=== PATIENT | male | born 2000 | race Two or more races ===

== ENCOUNTER 2023-03-01 07:05 | Emergency (ER) | payer SELFPAY ==
[2023-03-01 07:11] VITALS: BP 150/92; PULSE 109; RESP 20; TEMP 36.1; O2SAT 97; BMI 16.1
--- NOTE | 2023-03-01 07:43 | ED.URI ---
HPI - URI/Sore Throat General Chief Complaint: Upper Respiratory Symptoms Stated Complaint: Congestion, sore throat Time Seen by Provider: 03/01/23 07:27 History of Present Illness HPI Narrative: Patient is a 22-year-old male presents today with having coughing congestion upper respiratory symptoms this been ongoing for the last 2 days. Positive generalized malaise weakness. Mild headache and runny nose. Tolerating fluids. Previously well has no significant past medical history. Patient never been vaccinated for COVID Related Data Previous Rx's Medication Instructions Recorded nirmatrelvir 300 mg (150 mg See Rx Instructions PO .COMPLEX 03/01/23 x2)-ritonavir 100 mg tablet,dose #30 ea pack (Paxlovid) Allergies Allergy/AdvReac Type Severity Reaction Status Date / Time No Known Allergies Allergy Verified 03/01/23 07:40 Review of Systems Review of Systems: Positive coughing congestion upper respiratory symptoms positive sore throat positive headache Yes all other systems are reviewed and are negative PMFSH Past Medical History Attestation statement: The following information was validated with the patient. Social History Social History Smoked in Last 30 Days: No Use of substances other than those prescribed or required for medical reasons: No Advance Directives: No Physical Exam Vital Signs: Vital Signs: Last Vital Signs Temp 97.0 F 03/01/23 07:11 Pulse 109 H 03/01/23 07:11 Resp 20 03/01/23 07:11 BP 150/92 H 03/01/23 07:11 Pulse Ox 98 03/01/23 08:19 O2 Del Method Room Air 03/01/23 08:19 BMI result Body Mass Index 16.1 Appearance: Alert. Oriented X3. No acute distress. Eyes: Pupils equal, round and reactive to light. ENT: Pharynx normal. Neck: Normal inspection. Neck supple. No lymph nodes noted. No crepitus CVS: Normal heart rate and rhythm. Pulses normal. Normal S1 and S2 Respiratory: No respiratory distress. Breath sounds normal. No Wheezing. No rales Abdomen: Soft and nontender. No rigidity. No distention. good BS x4 Skin: Skin warm and dry. Normal skin color. Normal skin turgor. Extremities: No lower extremity edema. Neurovascular intact to all extremities. No Lacerations. No Rash Neuro: Oriented X 3. No motor deficit. No sensory deficit. Moving all extermities. No slurred speech Medical Decision Making Medical Decision Making MDM Narrative: COVID test came back positive. Symptoms x2 days. Patient's O2 sats 97% on room air. Lungs are clear no respiratory distress. [place] patient does not need hospitalization will need symptom support. Offered Paxil open for COVID as patient is not vaccinated currently on no medications. In stable condition Differential Diagnosis Differential Diagnoses: The differential diagnosis associated with the presentation includes COVID flu RSV viral illness strep throat Admission/Observation Consideration of admission/observation: Escalation of care including admission/observation considered No need for admission as patient's O2 sats normal well-appearing Lab Data [facility] Lab Attestation statement: I reviewed the patient's lab results. Labs: Lab Results 03/01/23 Range/Units 08:00 Influenza Type A (PCR) NEGATIVE (Negative) Influenza Type B (PCR) NEGATIVE (Negative) RSV RNA Qual (PCR) NEGATIVE (Negative) SARS-CoV-2 RNA (RT-PCR) POSITIVE A (Negative) S. pyogenes GrpA LUIS M Negative (Negative) Prescription Management I considered prescription management with: Antibiotic No need for antibiotics will start patient on Paxil over the Discharge Plan Discharge Clinical Impression: COVID-19 Patient Disposition: Home, Self-Care Instructions: COVID-19 (Coronavirus Disease 2019) (ED) Prescriptions: New Paxlovid 300 mg (150 mg x 2)-100 mg tablets,dose pack See Rx Instructions .ROUTE .COMPLEX Qty: 30 0RF Rx Instructions: take TWO 150 mg tablets of nirmatrelvir with ONE 100 mg tablet of ritonavir twice daily for 5 days Referrals: Physician,Sanket J [Primary Care Provider] - 03/03/23 Stand Alone Forms: Work/School Release
--- NOTE | 2023-03-01 08:17 | PC.NURSE ---
this rn assumed care of pt. pt a&ox4, respirations even and unlabored. pt reporting cough, chest congestion, and headache for 3 days. pt reports when he coughs he has some yellow sputum production. pt denies being around other sick people. pt denies n/v/d and chest pain. pt lung sounds clear bilaterally. pt throat red without any patches. pt awaiting swab results.
[2023-03-01 08:19] VITALS: O2SAT 98
[2023-03-01 08:36] LABS: IDNOW Serial# 08D9AD1C; Strep A Nucleic Acid Negative (Negative)
[2023-03-01 08:51] LABS: Influenza A PCR NEGATIVE (Negative); Influenza B PCR NEGATIVE (Negative); Resp Syncy Virus RNA Qual PCR NEGATIVE (Negative); SARS COV2 PCR INHOUSE POSITIVE (Negative)
== END 2023-03-01 09:13 | disposition home or self-care (01) ==
PROVIDERS: Emergency Provider Emergency Medicine Emergency Medical Services
DX: U07.1 COVID-19 (principal); J02.9 Acute pharyngitis, unspecified; R05.9 Cough, unspecified; R53.1 Weakness
CPT/HCPCS: 0241U; 87651; 99283; 99284

== ENCOUNTER 2023-04-17 17:36 | Emergency (ER) | payer SELFPAY ==
--- NOTE | ~2023-04-17 | XR_ITS ---
EXAMINATION: XR HAND, RIGHT CLINICAL INFORMATION: Fall, injury. COMPARISON: None available. TECHNIQUE: PA, lateral, and oblique views of the right hand. FINDINGS: The bones and soft tissues are normal. No fracture. Alignment is anatomic. Joint spaces are maintained. No erosions or soft tissue calcifications. XR/XR hand RT 2V IMPRESSION: Normal right hand.
[2023-04-17 17:48] VITALS: BP 147/77; PULSE 95; RESP 18; TEMP 36.2; O2SAT 97; BMI 35.0
--- NOTE | 2023-04-17 17:50 | ED_ITS ---
HPI - Extremity Injury (Upper) General Chief Complaint: Extremity Injury, Upper Stated Complaint: Swollen rt hand/painful Time Seen by Provider: 04/17/23 18:17 Source: patient Mode of arrival: ambulatory Limitations: no limitations History of Present Illness HPI narrative: 22-year-old male right-hand dominant otherwise healthy here with complaints of right hand pain and swelling after punching a concrete wall yesterday. Patient denies fevers, chills, drainage from the site. He does report abrasion over the hand. His tetanus shot is up-to-date. He denies any fight bite. Related Data Previous Rx's Medication Instructions Recorded nirmatrelvir 300 mg (150 mg See Rx Instructions PO .COMPLEX 03/01/23 x2)-ritonavir 100 mg tablet,dose #30 ea pack (Paxlovid) amoxicillin 875 mg-potassium 1 tab PO BID #14 tabs 04/17/23 clavulanate 125 mg tablet Allergies Allergy/AdvReac Type Severity Reaction Status Date / Time No Known Allergies Allergy Verified 04/17/23 17:51 Review of Systems 2 Review of Systems: Yes all other systems are reviewed and are negative Constitutional: Constitutional: Reports no additional constitutional complaints, Denies body ache(s), Denies chills, Denies fever(s), Denies headache(s) and Denies weakness Eyes: Eyes: Reports no additional eye complaints and Denies change in vision ENT: Reports system reviewed and no additional complaints, except as documented, Denies dizziness, Denies headache(s), Denies nasal congestion, Denies nasal discharge and Denies neck pain Cardiovascular: Cardiovascular: Reports no additional cardiovascular complaints, Denies chest pain, Denies leg edema and Denies dyspnea Respiratory: Respiratory: Reports no additional respiratory complaints, Denies cough and Denies dyspnea Gastrointestinal: Gastrointestinal: Reports no additional gastrointestinal complaints, Denies abdominal pain, Denies diarrhea, Denies nausea and Denies vomiting Genitourinary: Genitourinary: Denies urinary incontinence Musculoskeletal: Musculoskeletal: Reports no additional musculoskeletal complaints, Denies back pain, Denies arthralgias, Denies joint swelling, Denies neck pain, Denies numbness and Denies tingling Integumentary/Breasts: Skin/Breast: Reports system reviewed and no additional complaints, except as docu, Reports swelling, Reports erythema and Denies rash Neurologic: Reports system reviewed and no additional complaints, except as documented, Denies Abnormal speech present, Denies dizziness, Denies headache(s), Denies numbness, Denies tingling and Denies weakness PMFSH Past Medical History Attestation statement: The following information was validated with the patient. Source: old records reviewed and nursing notes reviewed Onset Date is defined in the Problem List Problems that require an onset date and time if occurred within 24 hrs of arrival to the ED Aortic Dissection and Rupture; Neurologic impairment; Cardiopulmonary Arrest; Endotracheal Intubation; Insertion or Replacement of Mechanical Circulatory Assist Device Physical Exam 2 Vital Signs: Vital Signs: Last Vital Signs Temp 97.2 F 04/17/23 17:48 Pulse 95 04/17/23 17:48 Resp 18 04/17/23 17:48 BP 147/77 H 04/17/23 17:48 Pulse Ox 97 04/17/23 17:48 O2 Del Method Room Air 04/17/23 17:48 BMI result Body Mass Index 35.0 Const: General: cooperative, healthy appearing, comfortable and no acute distress Orientation/consciousness: patient oriented x3 Limitations: no limitations HEENT: Head: Yes normal to inspection Ears: hearing grossly normal bilaterally General nose exam: Normal external nose present Face and sinus: Yes normal facial exam Mouth: Normal oral and palatal mucosa present Throat: Yes posterior oropharynx normal Eyes: General: appearance normal, both eyes and all related structures P upils: Equal, round and reactive pupils present Neck: Neck: Yes normal visual inspection Chest: Chest palpation & inspection: normal inspection of the chest Resp: Effort & Inspection: normal respiratory effort Auscultation: clear to auscultation bilaterally Cardio: Rate: regular rate Rhythm: regular rhythm Peripheral pulses: P eripheral pulses 2+ throughout GI: Inspection: Yes normal to inspection Palpation (GI): Soft to palpation and nontender Auscultation: normal bowel sounds Back/Spine/Pelvis: Thoracic/Lumbar Spine: thoracic and lumbar spine normal to inspection Skin: General skin exam: no rashes or lesions noted Neuro: General: patient oriented x3, no focal motor deficits and normal sensation to monofilament Cranial nerves: Yes Equal, round and reactive pupils present Cognition (Neuro): normal cognition Speech: No Abnormal speech present Gait exam (Neuro): Normal gait present Motor exam (neuro): 5/5 motor strength present throughout Extrem: Other: Full passive and active range of motion. Normal distal sensation. Normal distal pulses. There is slight warmth and erythema noted over the dorsal hand which is not circumferential. No fluctuance noted. General: Yes normal to inspection Course Course Course Narrative: this is a rapid medical exam. Defer additional HPI, ROS, PE to prior provider. 22-year-old male previously healthy, [id number] here with complaints of right hand swelling and pain after punching an object yesterday. Patient does have swelling on exam. Will need x-rays. There is also some warmth and erythema to the may be some underlying concern for cellulitis. There is an abrasion noted over the 3rd digit. Normal FROM VSS Medical Decision Making Medical Decision Making MDM Narrative: 22-year-old male right-hand dominant otherwise healthy here with complaints of right hand pain and swelling after punching a concrete wall yesterday. Patient denies fevers, chills, drainage from the site. He does report abrasion over the hand. His tetanus shot is up-to-date. He denies any fight bite. Full passive and active range of motion. Normal distal sensation. Normal distal pulses. There is slight warmth and erythema noted over the dorsal hand which is not circumferential. No fluctuance noted. Will obtain x-rays due to reports of trauma Differential Diagnosis Differential Diagnoses: The differential diagnosis associated with the presentation includes fracture, contusion, cellulitis Admission/Observation Consideration of admission/observation: Escalation of care including admission/observation considered there appears to be mild cellulitis on exam. There is full active and passive range of motion so I have low concern for tenosynovitis, septic joint or underlying abscess. As it is on the patient's dominant hand did recommend strict return precautions. At this time I do not feel the patient needs admission or IV antibiotics Independent Interpretation I performed an independent interpretation of an: Plain X-Ray Interpretation: independently interpreted the x-ray and agree with the radiology report Radiology Impression Discussion of test interpretation with radiology: I have reviewed the radiologist's reading. Radiologist Impression: [address] [address] XRay Report Signed Patient: Asher Hartmann MR#: [id number] : 2000 Acct:[id number] Age/Sex: 22 / M ADM Date: 01/01/24 Loc: HO.ED Attending Dr: Ordering Physician: Meera Delgado NP Date of Service: 04/17/23 Procedure(s): XR hand RT 2V Accession Number(s): [id number] cc: Physician,Unknown ; Meera Delgado NP~ EXAMINATION: XR HAND, RIGHT CLINICAL INFORMATION: Fall, injury. COMPARISON: None available. TECHNIQUE: PA, lateral, and oblique views of the right hand. FINDINGS: The bones and soft tissues are normal. No fracture. Alignment is anatomic. Joint spaces are maintained. No erosions or soft tissue calcifications. XR/XR hand RT 2V IMPRESSION: Normal right hand. Prescription Management I considered prescription management with: Antibiotic Discharge Plan Discharge Clinical Impression: Cellulitis Patient Disposition: Home, Self-Care Instructions: Cellulitis (ED), Warm Compress or Soak (ED) Additional Instructions: Elevate the hand, apply ice or heat to the affected area Take Motrin or Tylenol for pain as needed Return for any increase in swelling, redness, purulent drainage, fever Prescriptions: New amoxicillin-pot clavulanate 875-125 mg tablet 1 tab PO BID Qty: 14 0RF No Action Paxlovid 300 mg (150 mg x 2)-100 mg tablets,dose pack See Rx Instructions .ROUTE .COMPLEX Qty: 30 0RF Rx Instructions: take TWO 150 mg tablets of nirmatrelvir with ONE 100 mg tablet of ritonavir twice daily for 5 days Referrals: Physician,Unknown J [Primary Care Provider] - 1 week Stand Alone Forms: Work/School Release
[2023-04-17] MEDS: Amoxicillin/Potassium Clav 875 MG TABLET PO (18:25)
== END 2023-04-17 18:30 | disposition home or self-care (01) ==
PROVIDERS: Emergency Provider Emergency Medicine
DX: L03.113 Cellulitis of right upper limb (principal); S60.511A Abrasion of right hand, initial encounter; W22.09XA Striking against other stationary object, initial encounter; Y93.89 Activity, other specified; Y92.9 Unspecified place or not applicable; Y99.9 Unspecified external cause status
CPT/HCPCS: 73120; 99282; 99283